=== PATIENT | female | born 1960 | race Caucasian/White ===

== ENCOUNTER → 2018-08-21 | Outpatient (REF) ==
[~2018-08-21] MED LIST: ADLT ASA LOW81 MG PO; CALCIUM + D600 MG PO; FLONASE NASAL50 MCG; MULTI COMPLETE PO; OMEGA-3 FIS1 PO; SUPER B COM2 PO; [UNRECOGNIZED DRUG - CODE] PO; [UNRECOGNIZED DRUG - OTHER] PO
== END | disposition home or self-care (01) | DRG 392 ==
LOC: LABSPEC 12:04
PROVIDERS: ATTEND Nurse Practitioner Family
DX: R10.9 Unspecified abdominal pain (principal)

== ENCOUNTER 2022-08-14 06:45 | Day surgery (SDC) | payer OTHER ==
[~2022-08-14] VITALS: Ht 157.5 cm; Wt 68.9 kg
[~2022-08-14 06:45] MED LIST changes: +LIPITOR20 M1 PO; +OMEPRAZOLE DR40 MG PO; +PREDNISONE1 MG IO
[2022-08-14 08:32] VITALS: BP 127/79
== END 2022-08-14 08:50 | disposition home or self-care (01) | DRG 951 ==
LOC: ENDO 06:45 → ORM 07:30 → ENDO 07:30 → ORM 08:00 → ENDO 08:50
PROVIDERS: ATTEND Internal Medicine Gastroenterology
PROC: 0DBK8ZX Excision of Ascending Colon, Via Natural or Artificial Opening Endoscopic, Diagnostic (ICD-10-PCS; principal; 2022-08-14)
DX: Z12.11 Encounter for screening for malignant neoplasm of colon (principal); D12.2 Benign neoplasm of ascending colon; K57.30 Diverticulosis of large intestine without perforation or abscess without bleeding; K64.8 Other hemorrhoids; E21.0 Primary hyperparathyroidism; E78.5 Hyperlipidemia, unspecified; Z86.010 Personal history of colon polyps; Z80.0 Family history of malignant neoplasm of digestive organs